=== PATIENT | male | born 1970 ===

== ENCOUNTER 2017-07-27 13:54 | Emergency (ER) | payer SELFPAY ==
[2017-07-27 14:25] VITALS: BP 149/88; PULSE 90; RESP 16; TEMP 99; O2SAT 100
--- NOTE | 2017-07-27 14:38 | ED PDOC ---
HPI: Allergic Reaction Time Seen by Provider: 07/27/17 14:33 Chief Complaint (Nursing): Allergic Reaction Chief Complaint (Provider): Allergic reaction History Per: Patient History/Exam Limitations: no limitations Onset/Duration Of Symptoms: Days (2) Current Symptoms Are (Timing): Still Present Context: Food Possible Cause: Food Associated Symptoms: Skin Rash, Itching, Redness Additional Complaint(s): 47yo male, with past medical history of hypertension, presents to the ED for evaluation after an allergic reaction. Patient reports he ate ceviche 2 days ago after which he developed redness, itching. Patient is currently complaining of some throat tightness, but denies any shortness of breath, chest pain. He states he took OTC allergy medications with some relief. Past Medical History Reviewed: Historical Data, Nursing Documentation, Vital Signs Vital Signs: Last Vital Signs Temp 99.0 F 07/27/17 14:21 Pulse 90 07/27/17 14:21 Resp 16 07/27/17 14:21 BP 149/88 07/27/17 14:21 Pulse Ox 100 07/27/17 14:21 - Medical History PMH: HTN - Surgical History Surgical History: No Surg Hx - Family History Family History: States: Unknown Family Hx - Home Medications Home Medications: Ambulatory Orders Medication Instructions Recorded Cyclobenzaprine HCl [Flexeril] 10 mg PO BID PRN #12 tab 06/09/15 Ibuprofen [Motrin Tab] 800 mg PO Q6H PRN #20 tab 06/09/15 DiphenhydrAMINE [Benadryl] 50 mg PO Q6H PRN #20 cap 07/27/17 Famotidine [Pepcid] 20 mg PO DAILY #6 tab 07/27/17 predniSONE [predniSONE Tab] 20 mg PO DAILY #12 tab 07/27/17 - Allergies Allergies/Adverse Reactions: Allergies Allergy/AdvReac Type Severity Reaction Status Date / Time No Known Allergies Allergy Verified 06/09/15 20:29 Review of Systems ENT: Positive for: Other (throat swelling) Cardiovascular: Negative for: Chest Pain Respiratory: Negative for: Shortness of Breath Skin: Positive for: Rash Physical Exam - Reviewed Nursing Documentation Reviewed: Yes Vital Signs Reviewed: Yes - Physical Exam Appears: Positive for: Non-toxic, No Acute Distress Head Exam: Positive for: NORMAL INSPECTION Skin: Positive for: Rash (diffuse, varied size erythematous, rasied rash present to arms, chest and back. ) ENT: Positive for: Normal ENT Inspection. Negative for: Pharyngeal Erythema Neck: Positive for: Supple Cardiovascular/Chest: Positive for: Regular Rate, Rhythm Respiratory: Positive for: Normal Breath Sounds. Negative for: Wheezing, Respiratory Distress Neurologic/Psych: Positive for: Alert, Oriented. Negative for: Motor/Sensory Deficits - ECG O2 Sat by Pulse Oximetry: 100 (RA) Pulse Ox Interpretation: Normal - Progress ED Course And Treament: Time: 1440 Impression: Allergic reaction Plan: -- Solumedrol 125 mg IM Time: 1510 Patient to be d/c home with prescriptions for benadryl, pepcid and prednisone. Scribe Attestation: Documented by Kathie Monteiro acting as a scribe for JOSE Pascual Provider Attestation: All medical record entries made by the Scribe were at my direction and personally dictated by me. I have reviewed the chart and agree that the record accurately reflects my personal performance of the history, physical exam, medical decision making, and the department course for this patient. I have also personally directed, reviewed, and agree with the discharge instructions and disposition. Disposition - Clinical Impression Clinical Impression: Allergic reaction - Patient ED Disposition Is Patient to be Admitted: No Counseled Patient/Family Regarding: Diagnosis, Need For Followup, Rx Given - Disposition Referrals: [facility] [Outside] Disposition: Routine/Home Disposition Time: 14:48 Condition: GOOD Prescriptions: DiphenhydrAMINE [Benadryl] 50 mg PO Q6H PRN #20 cap PRN Reason: Itching / Pruritus Famotidine [Pepcid] 20 mg PO DAILY #6 tab predniSONE [predniSONE Tab] 20 mg PO DAILY #12 tab Instructions: Urticaria (ED) Forms: [id number] (Divehi)
== END 2017-07-27 15:24 | disposition home or self-care (01) ==
LOC: H.ER 13:54
DX: T78.40XA Allergy, unspecified, initial encounter (principal); I10 Essential (primary) hypertension
CPT/HCPCS: 96372; 99282; J2930